=== PATIENT | female | born 1995 | race Hispanic/Latino ===

== ENCOUNTER 2021-11-05 11:11 | Inpatient (IN) | payer MEDICAID, OTHER, SELFPAY ==
[~2021-11-05 11:11] MED LIST: Bupivacaine 0.25% HCL 30 ML VIAL ONE; Lidocaine 2% MPF 10 ML AMP (For Epidural Use) ONE
[2021-11-05] MEDS ORDERED: HYDROcodone/Acetaminophen 5/325 mg Tablet PO PRN ×2 (11:41→21:04)
[2021-11-05] MEDS ORDERED: Lidocaine 1% (PF) 30 ML VIAL SC PRN (11:41)
[2021-11-05] MEDS ORDERED: Butorphanol Tartrate 1 MG/ML VIAL SLOW IVP PRN (11:41)
[2021-11-05] MEDS ORDERED: Carboprost 250 MCG/ML AMP IM PRN (11:41)
[2021-11-05] MEDS ORDERED: Methylergonovine 0.2 MG/ML VIAL IM PRN (11:41)
[2021-11-05] MEDS ORDERED: Ibuprofen 800 MG TAB PO PRN (11:41)
[2021-11-05] MEDS ORDERED: Promethazine HCl 25 MG/ML VIAL IM PRN ×3 (11:41→21:04)
[2021-11-05] MEDS ORDERED: Misoprostol 200 MCG TAB PR PRN (11:41)
[2021-11-05] MEDS ORDERED: Diphenoxylate HCl/Atropine Tablet PO PRN (11:41)
[2021-11-05] MEDS ORDERED: Acetaminophen 500 MG TAB PO PRN (11:41)
[2021-11-05] MEDS ORDERED: Ondansetron PF 4 MG/2 ML Vial IVP PRN ×3 (11:41→21:04)
[2021-11-05] MEDS ORDERED: hydrALAZINE 20 MG/ML VIAL SLOW IVP PRN ×2 (11:41→21:04)
[2021-11-05] MEDS ORDERED: NS w/ Oxytocin 30 units 500 ML IV SCH ×2 (11:45→22:00)
[2021-11-05] MEDS: Lactated Ringer's 1,000 ML IV SCH ×2 (12:30→16:00)
[2021-11-05 12:49] LABS: Mean Corpuscular HGB CONC 34.1 g/dL (32.0-36.0); Mean Corpuscular Hemoglobin 29.4 pg (27.0-33.0); Mean Corpuscular Volume 86.2 fl (81.6-98.3); Mean Platelet Volume 10.4 fl (7.4-10.4); Platelet Count 234 10x3/uL (150-450); RBC Distribution Width 13.3 % (11.5-14.5); Red Blood Cell (RBC) Count 4.42 10x6/uL (3.90-5.03)
[2021-11-05 13:01] VITALS: BMI 36.0
[2021-11-05] MEDS: NS w/ Oxytocin 30 units 500 ML IV SCH ×2 (13:04→13:14)
[2021-11-05 13:16] LABS: Hep B Surf Ag Non-Reactive S/CO (NonReactive); Syphilis Antibody Nonreactive (Nonreactive); Syphilis Antibody Index 0.04 S/CO (<1.00 Non-Reactive)
[2021-11-05 13:30] LABS: HBSAg Index 0.15 S/CO (0-0.99)
[2021-11-05] MEDS ORDERED: Fentanyl 2 mcg/Bup 0.1% Cadd 100 ML ONE (15:53)
[2021-11-05] MEDS ORDERED: Communication Order-Pharmacy FS SCH (16:45)
[2021-11-05] MEDS ORDERED: Lactated Ringer's 500 ML IV PRN (16:45)
[2021-11-05] MEDS ORDERED: Fentanyl 2 mcg/Bupivacaine 0.1% Cassette 100 ML EPIDURAL SCH (16:45)
[2021-11-05] MEDS ORDERED: Hydrocerin (Eucerin) Cream 120 gm Jar TOP PRN (16:45)
[2021-11-05] MEDS ORDERED: ePHEDrine Sulfate 50 MG/10 ML VIAL SLOW IVP PRN (16:45)
[2021-11-05] MEDS ORDERED: Naloxone HCl 0.4 mg/ml Vial IVP PRN ×2 (16:45)
[2021-11-05] MEDS ORDERED: Acetaminophen 325 MG TAB PO PRN (16:45)
[2021-11-05] MEDS ORDERED: diphenhydrAMINE 50 MG/ML VIAL IVP PRN (16:45)
[2021-11-05] MEDS ORDERED: Boostrix 0.5 ML (Tdap) VIAL IM ONE (21:04)
[2021-11-05] MEDS ORDERED: Benzocaine-Menthol 82.5 ML CAN TOP PRN (21:04)
[2021-11-05] MEDS ORDERED: diphenhydrAMINE 25 MG CAP PO PRN (21:04)
[2021-11-05] MEDS ORDERED: Bisacodyl 10 MG SUPP PR PRN (21:04)
[2021-11-05] MEDS ORDERED: Lanolin Ointment 7 GM TUBE TOP PRN (21:04)
[2021-11-05] MEDS ORDERED: Milk Of Magnesia 30 ML UDCUP PO PRN (21:04)
[2021-11-05] MEDS: Ibuprofen 800 MG TAB PO SCH (21:52)
[2021-11-05] MEDS ORDERED: Docusate 100 MG CAP PO SCH (22:00)
[2021-11-06] MEDS: Ibuprofen 800 MG TAB PO SCH ×3 (05:16→20:40)
[2021-11-06] MEDS: Ferrous Sulfate 325 MG TAB PO SCH ×2 (08:07→14:09)
[2021-11-06] MEDS: Docusate 100 MG CAP PO SCH ×2 (09:31→20:40)
[2021-11-06] MEDS: Prenatal Vitamin 1 TAB PO SCH (09:31)
[2021-11-07] MEDS: Ibuprofen 800 MG TAB PO SCH ×2 (05:11→14:05)
[2021-11-07 07:48] VITALS: BP 110/57; TEMP 98.3
[2021-11-07] MEDS: Ferrous Sulfate 325 MG TAB PO SCH (10:29)
[2021-11-07] MEDS: Prenatal Vitamin 1 TAB PO SCH (10:29)
[2021-11-07] MEDS: Docusate 100 MG CAP PO SCH (10:29)
== END 2021-11-07 14:40 | disposition home or self-care (01) | DRG 807 ==
LOC: EEVIPCON 11:11 → CSHLD 11:11 → CSHPP 22:30 → CSHPED 11-06 08:30
PROVIDERS: ADMIT Family Medicine; ATTEND Family Medicine
PROC: 10E0XZZ Delivery of Products of Conception, External Approach (ICD-10-PCS; principal; 2021-11-05)
PROC: 3E033VJ Introduction of Other Hormone into Peripheral Vein, Percutaneous Approach (ICD-10-PCS; 2021-11-05)
PROC: 10907ZC Drainage of Amniotic Fluid, Therapeutic from Products of Conception, Via Natural or Artificial Opening (ICD-10-PCS; 2021-11-05)
PROC: 0KQM0ZZ Repair Perineum Muscle, Open Approach (ICD-10-PCS; 2021-11-05)
DX: O99.62 Diseases of the digestive system complicating childbirth (principal); Z37.0 Single live birth; Z3A.39 39 weeks gestation of pregnancy; K21.9 Gastro-esophageal reflux disease without esophagitis; O70.1 Second degree perineal laceration during delivery
CPT/HCPCS: 36415; 51702; 85027; 86780; 86850; 86900; 86901; 87340; J2590; J7120; S0020

== ENCOUNTER 2023-07-20 18:02 | Day surgery (SDC) | payer OTHER ==
[2023-07-20 18:53] VITALS: BMI 36.1
[2023-07-20] MEDS ORDERED: hydrALAZINE 20 MG/ML VIAL SLOW IVP PRN (18:56)
[2023-07-20 19:48] LABS: Fetal Membranes Rupture No Membranes Rupture (No Rupture)
== END 2023-07-20 20:40 | disposition home or self-care (01) ==
LOC: CSHLD/OP 18:02
PROVIDERS: ATTEND Family Medicine
DX: O99.891 Other specified diseases and conditions complicating pregnancy (principal); R10.9 Unspecified abdominal pain; Z03.71 Encounter for suspected problem with amniotic cavity and membrane ruled out; O98.812 Other maternal infectious and parasitic diseases complicating pregnancy, second trimester; B37.31 Acute candidiasis of vulva and vagina; Z3A.21 21 weeks gestation of pregnancy; Z79.899 Other long term (current) drug therapy
CPT/HCPCS: 84112